=== PATIENT | female | born 1940 | race Caucasian/White ===

== ENCOUNTER 2016-09-04 10:49 | Emergency (ER) | payer MEDICARE, BC ==
[~2016-09-04] VITALS: Ht 167.6 cm; Wt 113.6 kg
[~2016-09-04 10:49] MED LIST: ADULT ASA81 MG OR; ALPRAZOLAM0.25 MG PO; ALPRAZOLAM0.5 M1 PO; ALPRAZOLAM0.5 MG PO; ARIXTR SC; ASPIR-8181 MG OR; ASPIRIN81 MG PO; AUGMENTIN500TAB PO; AVELOX400 MG OR; CETIRIZ/PSE1 TAB PO; CETIRIZINE10 MG OR; CIPRODEX1 ML OT; CLONAZEP ODT1 MG OR; CLONAZEPAM1 M1 OR; COMBIVENT IN; COUMADIN5 MG OR; COUMADIN5 MG PO; COUMADIN7.5 MG OR; COUMADIN7.5 MG PO; CYMBALTA30 MG PO; CYTOMEL25 MC1 PO; DIFLUCAN100 MG PO; FENOFIBRATE134 MG; FENOFIBRATE134 MG OR; FENOFIBRATE134 MG PO; FIBERCON625 MG PO; FLEXERIL PO; FLONASE NASAL50 MCG; FLUARIX QUADRIV1 INJ IM; FLULAVAL IM; FUROSEMIDE40 MG OR; FUROSEMIDE40 MG PO; HYDROCO/APAP1 T10 OR; HYDROCO/APAP1 T10 PO; HYDROMET1 M1 OR; IPRATROPIUM BROMIDE/ PO; KLOR-CON 1010 ME1 PO; KLOR-CON 1010 MEQ OR; LASIX40 MG OR; LEVAQUIN750 MG PO; LEVOTHYROXIN137 MCG OR; LEVOTHYROXIN150 MCG PO; LEVOTHYROXIN25 MC1 PO; LEVOTHYROXIN25 MCG PO; LOMOTIL2.5 MG PO; LOPRESSOR25 MG PO; LORTAB 7.5 PO; METFORMIN1000 MG PO; METFORMIN500 M1 PO; METFORMIN500 MG OR; METOPROL TAR25 M1 PO; METOPROLOL25 M1 OR; METOPROLOL25 MG OR; NASONEX50 MCG/AC; NITROGLYCER0.4 MG/HR TD; NITROQUICK0.4 MG SL; NORCO1 TAB PO; ONE DAILY FOR WOME1 PO; OXYCOD-APAP1 TAB OR; PANTOPRAZOLE SO40 MG PO; PAROXETINE10 MG PO; PAROXETINE20 MG OR; PAROXETINE20 MG PO; PEPCID AC10 MG OR; PERCOCET 5/325M1 TAB PO; PLAVIX75 MG OR; PRAVASTATIN20 MG PO; PREDNISONE10 MG OR; PREDNISONE20 MG PO; PREVACID30 M2 PO; PROMETH/COD1 ML OR; PROVENTIL HFA INH; ROBITUSSIN AC10 ML OR; ROBITUSSIN AC10 ML PO; SERTRALINE HCL50 MG PO; SERTRALINE100 MG PO; SIMVASTATIN40 MG OR; SKELAXIN800 MG OR; SYMBICORT1 AE1 IN; SYNTHROID125 MCG PO; SYNTHROID150 MCG OR; SYNTHROID200 MCG PO; ULTRAM50 M1 PO; VOSOL2 % AU; WARFARIN5 MG OR; WARFARIN5 MG PO; WARFARIN7.5 MG OR; XANAX0.5 MG OR; ZANTAC 150 PO; ZOFRAN ODT4 MG PO; ZPAK PO
[2016-09-04 11:18] LABS: HEMOGLOBIN 11.9 g/dl (12.0-16.0); IMMATURE GRANULOCYTES 0.4 % (0.0-1.0); MEAN CELL VOLUME 93.1 fL CALC (80.0-100.0); MEAN CORPUSCULAR HGB 29.2 pG CALC (26.0-32.0); MEAN CORPUSCULAR HGB CONC 31.3 g/L CALC (32.0-36.0); NEUT# 6.55 thou/uL (2.00-7.15); RED BLOOD COUNT 4.08 mill/uL (4.20-5.60); RED CELL DISTRI WIDTH 13.2 % (11.5-15.5)
[2016-09-04 11:29] LABS: ALBUMIN 3.9 g/dL (3.2-5.0); ALKALINE PHOSPHATASE 101 u/l (38-126); ANION GAP 16 (6-22 (CALC)); BILIRUBIN, TOTAL 0.4 mg/dL (0.0-1.4); BUN 10 mg/dL (8-23); BUN/CREATININE RATIO 12 (12-20 (CALC)); CALCIUM 8.9 mg/dL (8.4-10.2); CARBON DIOXIDE 27 mmol/l (22-30); CHLORIDE 102 mmol/l (95-108); CREATININE 0.9 mg/dL (0.5-1.0); GFR > 60 ML/MIN (>=60 (CALC)); GFR FOR AFR.AMER. > 60 ML/MIN (>=60 (CALC)); GLUCOSE 113 mg/dL (82-115); INTERNATIONAL NORMALIZED RATIO 1.8 RATIO (0.7-1.3); POTASSIUM 4.5 mmol/l (3.5-5.1); PROTHROMBIN TIME 20.9 SECONDS (9.0-12.5); SGOT/AST 44 u/l (9-36); SGPT/ALT 46 u/l (11-66); SODIUM 141 mmol/l (137-146); TOTAL PROTEIN 6.9 g/dL (6.3-8.2)
[2016-09-04 11:40] LABS: MYOGLOBIN 25 ng/mL (0 - 62)
[2016-09-04 12:27] LABS: URINE BILIRUBIN - DIPSTICK NEGATIVE (NEGATIVE); URINE BLOOD DIPSTICK NEGATIVE (NEGATIVE); URINE CLARITY CLEAR; URINE COLOR YELLOW; URINE GLUCOSE - DIPSTICK NEGATIVE (NEGATIVE); URINE KETONE NEGATIVE (NEGATIVE); URINE LEUK ESTERASE TRACE (NEGATIVE); URINE NITRITE - DIPSTICK NEGATIVE (Negative); URINE PROTEIN - DIPSTICK NEGATIVE (NEG-TRACE); URINE SPECIFIC GRAVITY 1.015; URINE UROBILINOGEN - DIPSTICK 0.2 E.U./dL (0.2)
[2016-09-04 13:35] VITALS: BP 135/65
== END 2016-09-04 13:35 | disposition home or self-care (01) ==
LOC: ED 10:49
PROVIDERS: Emergency Medicine
DX: R42 Dizziness and giddiness (principal); I10 Essential (primary) hypertension; I25.10 Atherosclerotic heart disease of native coronary artery without angina pectoris; E11.9 Type 2 diabetes mellitus without complications; R11.0 Nausea; Z79.01 Long term (current) use of anticoagulants

== ENCOUNTER 2017-04-12 22:56 | Emergency (ER) | payer MEDICARE, BC ==
[~2017-04-12] VITALS: Ht 167.6 cm; Wt 100.0 kg
[2017-04-12] MEDS ORDERED: COUMADIN7.5 MG PO (23:12)
[2017-04-12] MEDS ORDERED: LEVOTHYROXIN100 MCG PO (23:13)
[2017-04-13] MEDS ORDERED: PERCOCET 5/325M1 TAB PO (00:40)
[2017-04-13 00:50] VITALS: BP 158/77
== END 2017-04-13 00:50 | disposition home or self-care (01) ==
LOC: ED 22:56
DX: S93.601A Unspecified sprain of right foot, initial encounter (principal); M79.671 Pain in right foot; M25.474 Effusion, right foot; W18.30XA Fall on same level, unspecified, initial encounter; Y93.89 Activity, other specified; Y92.29 Other specified public building as the place of occurrence of the external cause

== ENCOUNTER 2017-10-18 12:29 | Inpatient (IN) | payer MEDICARE, BC ==
[~2017-10-18] VITALS: Ht 167.6 cm; Wt 95.0 kg
[~2017-10-18 12:29] MED LIST changes: +LEVOTHYROXIN100 MCG PO
[2017-10-18 14:07] LABS: HEMATOCRIT 37.8 % (37.0-47.0); HEMOGLOBIN 12.2 g/dl (12.0-16.0); IMMATURE GRANULOCYTES 0.3 % (0.0-1.0); MEAN CELL VOLUME 90.4 fL CALC (80.0-100.0); MEAN CORPUSCULAR HGB 29.2 pG CALC (26.0-32.0); MEAN CORPUSCULAR HGB CONC 32.3 g/L CALC (32.0-36.0); NEUT# 8.22 thou/uL (2.00-7.15); RED BLOOD COUNT 4.18 mill/uL (4.20-5.60); RED CELL DISTRI WIDTH 12.6 % (11.5-15.5)
[2017-10-18 14:19] LABS: ALBUMIN 3.9 g/dL (3.2-5.0); ANION GAP 14 (6-22 (CALC)); BILIRUBIN, TOTAL 0.4 mg/dL (0.0-1.4); BUN 10 mg/dL (8-23); BUN/CREATININE RATIO 10 (12-20 (CALC)); CARBON DIOXIDE 28 mmol/l (22-30); CHLORIDE 99 mmol/l (95-108); GFR 54 ML/MIN (>=60 (CALC)); GFR FOR AFR.AMER. > 60 ML/MIN (>=60 (CALC)); POTASSIUM 3.9 mmol/l (3.5-5.1); SGOT/AST 26 u/l (9-36); SGPT/ALT 35 u/l (11-66); SODIUM 137 mmol/l (137-146); TOTAL PROTEIN 6.9 g/dL (6.3-8.2)
[2017-10-18 14:20] LABS: ALKALINE PHOSPHATASE 111 u/l (38-126)
[2017-10-18 14:26] LABS: D-DIMER 0.48 mg/L (0.19-0.60)
[2017-10-18] MEDS ORDERED: IPRATROPIU0.5 MG/3 M IN (14:27)
[2017-10-18] MEDS ORDERED: LISINOPRIL5 MG PO (14:27)
[2017-10-18 14:39] LABS: INTERNATIONAL NORMALIZED RATIO 2.5 RATIO (0.7-1.3); PROTHROMBIN TIME 28.2 SECONDS (9.0-12.5)
[2017-10-18 16:02] VITALS: BP 132/85
[2017-10-18 19:00] VITALS: BP 94/58
[2017-10-18 23:45] VITALS: BP 92/60
[2017-10-19 03:51] VITALS: BP 89/55
[2017-10-19 04:50] LABS: HEMATOCRIT 33.5 % (37.0-47.0); HEMOGLOBIN 10.6 g/dl (12.0-16.0); IMMATURE GRANULOCYTES 0.3 % (0.0-1.0); MEAN CELL VOLUME 89.6 fL CALC (80.0-100.0); MEAN CORPUSCULAR HGB 28.3 pG CALC (26.0-32.0); MEAN CORPUSCULAR HGB CONC 31.6 g/L CALC (32.0-36.0); NEUT# 7.11 thou/uL (2.00-7.15); RED BLOOD COUNT 3.74 mill/uL (4.20-5.60); RED CELL DISTRI WIDTH 12.6 % (11.5-15.5)
[2017-10-19 05:01] LABS: CHOLESTEROL HDL RATIO 2.8 (<4.4 (CALC)); INTERNATIONAL NORMALIZED RATIO 2.5 RATIO (0.7-1.3); PROTHROMBIN TIME 28.1 SECONDS (9.0-12.5)
[2017-10-19 05:03] LABS: ALBUMIN 3.3 g/dL (3.2-5.0); BILIRUBIN, TOTAL 0.2 mg/dL (0.0-1.4); CREATININE 1.1 mg/dL (0.5-1.0); TOTAL PROTEIN 6.1 g/dL (6.3-8.2)
[2017-10-19 05:34] LABS: TSH, 3RD GENERATION 0.57 uIU/mL (0.47 - 4.68)
[2017-10-19 07:37] VITALS: BP 129/78
[2017-10-19 11:00] VITALS: BP 137/73
[2017-10-19 15:56] VITALS: BP 107/57
[2017-10-19 19:35] VITALS: BP 112/63
[2017-10-19 23:31] VITALS: BP 103/59
[2017-10-20] VITALS (7 sets, daily range): BP systolic 91–129; BP diastolic 50–76
[2017-10-20 04:52] LABS: HEMATOCRIT 32.9 % (37.0-47.0); HEMOGLOBIN 10.7 g/dl (12.0-16.0); IMMATURE GRANULOCYTES 0.7 % (0.0-1.0); MEAN CELL VOLUME 88.4 fL CALC (80.0-100.0); MEAN CORPUSCULAR HGB 28.8 pG CALC (26.0-32.0); MEAN CORPUSCULAR HGB CONC 32.5 g/L CALC (32.0-36.0); NEUT# 14.37 thou/uL (2.00-7.15); RED BLOOD COUNT 3.72 mill/uL (4.20-5.60); RED CELL DISTRI WIDTH 12.4 % (11.5-15.5)
[2017-10-20 05:13] LABS: CREATININE 1.1 mg/dL (0.5-1.0); POTASSIUM 3.8 mmol/l (3.5-5.1)
[2017-10-21 04:38] VITALS: BP 112/65
[2017-10-21 04:39] LABS: HEMATOCRIT 36.3 % (37.0-47.0); HEMOGLOBIN 11.7 g/dl (12.0-16.0); IMMATURE GRANULOCYTES 0.7 % (0.0-1.0); MEAN CORPUSCULAR HGB 28.7 pG CALC (26.0-32.0); MEAN CORPUSCULAR HGB CONC 32.2 g/L CALC (32.0-36.0); NEUT# 9.32 thou/uL (2.00-7.15); RED BLOOD COUNT 4.08 mill/uL (4.20-5.60); RED CELL DISTRI WIDTH 12.7 % (11.5-15.5)
[2017-10-21 04:45] LABS: ALBUMIN 3.3 g/dL (3.2-5.0); ALKALINE PHOSPHATASE 81 u/l (38-126); ANION GAP 13 (6-22 (CALC)); BILIRUBIN, TOTAL 0.2 mg/dL (0.0-1.4); BUN 17 mg/dL (8-23); BUN/CREATININE RATIO 18 (12-20 (CALC)); CARBON DIOXIDE 28 mmol/l (22-30); CHLORIDE 101 mmol/l (95-108); CREATININE 0.9 mg/dL (0.5-1.0); GFR > 60 ML/MIN (>=60 (CALC)); GFR FOR AFR.AMER. > 60 ML/MIN (>=60 (CALC)); POTASSIUM 4.3 mmol/l (3.5-5.1); SGOT/AST 28 u/l (9-36); SGPT/ALT 33 u/l (11-66); SODIUM 137 mmol/l (137-146); TOTAL PROTEIN 6.1 g/dL (6.3-8.2)
[2017-10-21 07:33] VITALS: BP 115/72
[2017-10-21 11:45] VITALS: BP 123/62
[2017-10-21 15:24] VITALS: BP 113/64
[2017-10-21 19:00] VITALS: BP 117/70
[2017-10-22 00:05] VITALS: BP 116/59
[2017-10-22 03:49] VITALS: BP 110/58
[2017-10-22 05:07] LABS: HEMATOCRIT 35.2 % (37.0-47.0); HEMOGLOBIN 11.4 g/dl (12.0-16.0); IMMATURE GRANULOCYTES 1.4 % (0.0-1.0); MEAN CELL VOLUME 89.8 fL CALC (80.0-100.0); MEAN CORPUSCULAR HGB 29.1 pG CALC (26.0-32.0); MEAN CORPUSCULAR HGB CONC 32.4 g/L CALC (32.0-36.0); NEUT# 6.67 thou/uL (2.00-7.15); RED BLOOD COUNT 3.92 mill/uL (4.20-5.60)
[2017-10-22 05:22] LABS: ANION GAP 11 (6-22 (CALC)); BUN 13 mg/dL (8-23); BUN/CREATININE RATIO 13 (12-20 (CALC)); CARBON DIOXIDE 30 mmol/l (22-30); CHLORIDE 102 mmol/l (95-108); GFR 54 ML/MIN (>=60 (CALC)); GFR FOR AFR.AMER. > 60 ML/MIN (>=60 (CALC)); POTASSIUM 4.5 mmol/l (3.5-5.1); SODIUM 139 mmol/l (137-146)
[2017-10-22 07:19] VITALS: BP 111/69
[2017-10-22 08:00] VITALS: BP 111/69
[2017-10-22] MEDS ORDERED: LEVAQUIN750 MG PO (08:26)
[2017-10-22] MEDS ORDERED: RESTORIL15 MG PO (09:04)
== END 2017-10-22 09:43 | disposition home or self-care (01) | DRG 190 ==
LOC: ED 12:29 → ED-I 15:14 → ED 15:26 → MS2 15:27
PROVIDERS: Emergency Medicine; ADMIT Internal Medicine Geriatric Medicine; ATTEND Internal Medicine Geriatric Medicine
DX: J44.1 Chronic obstructive pulmonary disease with (acute) exacerbation (principal); J18.9 Pneumonia, unspecified organism; F11.20 Opioid dependence, uncomplicated; J44.0 Chronic obstructive pulmonary disease with (acute) lower respiratory infection; E11.9 Type 2 diabetes mellitus without complications; I10 Essential (primary) hypertension; I25.10 Atherosclerotic heart disease of native coronary artery without angina pectoris; E03.9 Hypothyroidism, unspecified; E78.5 Hyperlipidemia, unspecified; F32.9 Major depressive disorder, single episode, unspecified; G89.29 Other chronic pain; M54.5 Low back pain; K21.9 Gastro-esophageal reflux disease without esophagitis; M47.812 Spondylosis without myelopathy or radiculopathy, cervical region; R11.2 Nausea with vomiting, unspecified; R19.7 Diarrhea, unspecified; I49.3 Ventricular premature depolarization; I25.2 Old myocardial infarction; Z95.2 Presence of prosthetic heart valve; Z79.01 Long term (current) use of anticoagulants
CPT/HCPCS: G0378

== ENCOUNTER 2018-02-02 12:54 | Observation (INO) | payer MEDICARE, BC ==
[~2018-02-02] VITALS: Ht 170.2 cm; Wt 94.0 kg
[~2018-02-02 12:54] MED LIST changes: +IPRATROPIU0.5 MG/3 M IN; +LISINOPRIL5 MG PO; +RESTORIL15 MG PO
--- NOTE | 2018-02-02 13:01 | NUR ---
PT TO ROOM 14 VIA EMS
[2018-02-02] MEDS ORDERED: PEPCID20 MG PO (13:11)
--- NOTE | 2018-02-02 13:16 | NUR ---
AT BEDSIDE EVALUATING PT.
[2018-02-02 13:28] LABS: HEMATOCRIT 39.7 % (37.0-47.0); HEMOGLOBIN 12.3 g/dl (12.0-16.0); IMMATURE GRANULOCYTES 0.5 % (0.0-5.0); MEAN CELL VOLUME 88.6 fL CALC (80.0-100.0); MEAN CORPUSCULAR HGB 27.5 pG CALC (26.0-32.0); NEUT# 5.53 thou/uL (2.00-7.15); RED BLOOD COUNT 4.48 mill/uL (4.20-5.60); RED CELL DISTRI WIDTH 14.3 % (11.5-15.5)
--- NOTE | 2018-02-02 13:32 | NUR ---
PT CRYING IN BED SUDDENLY AND MD AT BEDSIDE. STATES HER KNEE HURTS.
[2018-02-02 13:38] LABS: PROTHROMBIN TIME 20.7 SECONDS (9.0-12.5)
[2018-02-02 13:42] LABS: ANION GAP 12 (6-22 (CALC)); BUN 10 mg/dL (8-23); BUN/CREATININE RATIO 11 (12-20 (CALC)); CARBON DIOXIDE 29 mmol/l (22-30); CHLORIDE 105 mmol/l (95-108); CREATININE 0.9 mg/dL (0.5-1.0); GFR > 60 ML/MIN (>=60 (CALC)); GFR FOR AFR.AMER. > 60 ML/MIN (>=60 (CALC)); POTASSIUM 4.7 mmol/l (3.5-5.1); SODIUM 141 mmol/l (137-146)
--- NOTE | 2018-02-02 14:44 | NUR ---
VOLNAR SPLINT APPLIED TO LEFT HAND/FOREARM. PT TOLERATED WELL.
--- NOTE | 2018-02-02 15:04 | NUR ---
PT AWARE OF PENDING ADMIT. DAUGHTER AT BEDSIDE. CAP REFILL BRISK TO LT HAND.
[2018-02-02 15:30] VITALS: BP 124/76
--- NOTE | 2018-02-02 15:38 | NUR ---
REPORT CALLED TO NURSE ON MEDSURG. ADVISED BY NURSE THAT ROOM WAS BEING CLEANED AND SHE WILL CALL WHEN IT IS READY.
--- NOTE | 2018-02-02 16:07 | NUR ---
ATTEMPT TO TAKE PT TO MEDSURG ROOM 280. PER REMOTE RUBY ON RAILS DEVELOPER ROOM IS STILL NOT AVAILABLE.
--- NOTE | 2018-02-02 16:12 | NUR ---
PT TO MEDSURG VIA STRETCHER. CAP REFILL BRISK TO LUE/FINGERS. VOLNAR SPLINT IN PLACE. IV SITE HEALTHY RAC. NO APPARENT DISTRESS.
--- NOTE | 2018-02-02 16:17 | NUR ---
PT TRANSPORTED TO [place] VIA STRETCHER ACCOMPIANED BY EBONI CASTILLO. PT TRANSFERRED TO BED FROM STRETCHER WITH ASSISTANCE FROM NICOLE CAO. PT A/O X3. SPEECH IS CLEAR. RESP EVEN AND UNLABORED. LUNG SOUNDS CLEAR. TELE IN PLACE. LAST BM 02/01/18. BOWEL SOUNDS ACTIVE X4. STRONG RADIAL AND PEDAL PULSES. EMS #20 RAC SL. FLUSHED AND PATENT. SITE APPEARS HEALTHY. PT HAS LT FOREHEAD HEMATOMA. RT PALM BRUSING. LT HAND DRESSING IN PLACE CDI. PT STATES RT FLANK SORENESS. ABRASION TO RT KNEE. PT STATES STABBING RT KNEE PAIN RATING 7 OUT OF 10 ON THE PAIN SCALE.DRESSING REMOVED,CLEANED AND TELFA AND KERLIX APPLIED. MINIMAL SWELLING AND REDNESS NOTED. LT KNEE REPOSITIONED. PLAN OF CARE DISCUSSED. SAFETY PRECAUTIONS IN PLACE. CALL LIGHT IN REACH. WILL CONTINUE TO MONITOR.
--- NOTE | 2018-02-02 17:22 | NUR ---
DR YING IN TO SEE PT
[2018-02-02 17:25] VITALS: BP 97/70
--- NOTE | 2018-02-02 18:39 | NUR ---
DR. YING CALLED IN REGARDS TO PAIN MEDICATION FOR PT. NEW ORDERS RECIEVED
[2018-02-02 20:00] VITALS: BP 105/62
[2018-02-02 23:49] VITALS: BP 95/59
[2018-02-03 04:00] VITALS: BP 125/45
--- NOTE | 2018-02-03 08:50 | NUR ---
AT BEDSIDE DISCUSSING POC INCLUDING DISCHARGE PLAN
[2018-02-03 08:59] VITALS: BP 115/58
[2018-02-03] MEDS ORDERED: RESTORIL15 MG PO (08:59)
--- NOTE | 2018-02-03 08:59 | NUR ---
PT ASSESSMENT COMPLETE. PT A/O X3. SPEECH IS CLEAR. RESP EVEN AND UNLABORED. LUNG SOUNDS CLEAR. TELE IN PLACE. BOWEL SOUNDS ACTIVE X4. STRONG RT HAND RADIAL PULSE. STRONG PEDAL PULSES. RT FOREHEAD HEAMTOMA NOTED. VERY LIGHT BLUE. NO OPENINGS OR DRAINAGE ON FOREHEAD. #20 RAC EMS SITE. FLUSHED AND PATENT. SITE APPEARS HEALTHY. PT STATES GENERALIZED SORENESS. LT HAND DRESSING IN PLACE. CDI, ELEVATED ON PILLOW. LT KNEE DRESSING CDI. PT STATES ACHING LT KNEE/HAND PAIN 7 OUT OF 10 ON PAIN SCALE. MEDICATED W/ ONE 325MG PERCOCET TABLET. PLAN OF CARE DISCUSSED. SAFETY PRECAUTIONS IN PLACE. CALL LIGHT IN REACH. WILL CONTINUE TO MONITOR.
[2018-02-03 09:13] LABS: HEMATOCRIT 37.1 % (37.0-47.0); HEMOGLOBIN 11.5 g/dl (12.0-16.0); IMMATURE GRANULOCYTES 0.2 % (0.0-5.0); MEAN CELL VOLUME 88.8 fL CALC (80.0-100.0); MEAN CORPUSCULAR HGB 27.5 pG CALC (26.0-32.0); NEUT# 3.86 thou/uL (2.00-7.15); RED BLOOD COUNT 4.18 mill/uL (4.20-5.60); RED CELL DISTRI WIDTH 14.5 % (11.5-15.5)
[2018-02-03 09:28] LABS: CHOLESTEROL HDL RATIO 2.8 (<4.4 (CALC)); CREATININE 1.1 mg/dL (0.5-1.0); POTASSIUM 4.5 mmol/l (3.5-5.1)
--- NOTE | 2018-02-03 09:41 | NUR ---
PT STATES LT HAND/KNEE PAIN HAS DECREASED TO A 5 OUT OF 10 ON PAIN SCALE. ASSISTED PT TO RESTROOM. LT HAND READJUSTED AND ELEVATED ON PILLOW. PT DENIES AND FURTHER NEEDS AT THIS TIME. CALL LIGHT IN REACH. WILL CONTINUE TO MONITOR.
--- NOTE | 2018-02-03 10:32 | NUR ---
DRESSING TO LT KNEE REMOVED. ABRASIONS TO KNEE, REDDENED AND BRUISED. SCANT SEROSANGUINEOUS DRAINAGE. SWELLING NOTED. AREA CLEANED W/ SALINE. TELFA AND KACE BANDAGE APPLIED. WILL CONTINUE TO MONITOR
--- NOTE | 2018-02-03 10:47 | NUR ---
'S OFFICE CALLED TO SCHEDULE AN APPT PER FOR SPLINT PLACEMENT; CURRENTLY IN HOUSE AND WILL COME TO PATIENTS ROOM AFTER HE IS DONE WITH A SX IN OR, PT UPDATED ON POC AND VERBALIZES UNDERSTANDING
--- NOTE | 2018-02-03 11:07 | NUR ---
PER SPLINT TO REMAIN IN PLACE UNTIL NEXT WEEK AND PT TO FOLLOW UP IN [facility] OFFICE.[facility] OFFICE CALLED AND PT PHONE # [email or web address]. OFFICE TO CALL AND SCHEDULE AN WITH PT PERSONALLY FOR FOLLOW UP. PT UPDATED ON POC AND VERBALIZES UNDERSTANDING
--- NOTE | 2018-02-03 11:30 | NUR ---
ALL DISCHARGE INFORMATION PROVIDED AT THIS TIME INCLUDING PRESCRIPTION;PT DENIES ANY ADDITIONAL NEEDS AT THIS TIME;IV SITE REMOVED WITH CATHETER INTACT;WHEELCHAIR TO BE PROVIDED FOR DISCHARGE;AWAITING GRAND DAUGHTER TO ARRIVE TO TRANSPORT PT HOME;WILL CONTINUE TO MONITOR
[2018-02-03 11:39] VITALS: BP 104/58
--- NOTE | 2018-02-03 12:20 | NUR ---
Discharge instructions given. Patient verbalizes understanding of same. Discharged in stable condition via Wheelchair to Home with family. All belongings sent with pt. Pt discharged at this time via wheelchair accompanied by volunteer and grand daughter.
== END 2018-02-03 12:20 | disposition home or self-care (01) ==
LOC: ED 12:54 → ED-I 14:47 → ED 14:59 → MS2 15:00
PROVIDERS: Family Medicine; ADMIT Internal Medicine Geriatric Medicine; ATTEND Internal Medicine Geriatric Medicine
PROC: 2W3DX1Z Immobilization of Left Lower Arm using Splint (ICD-10-PCS; principal; 2018-02-02)
DX: S00.83XA Contusion of other part of head, initial encounter (principal); S51.812A Laceration without foreign body of left forearm, initial encounter; S80.212A Abrasion, left knee, initial encounter; S60.221A Contusion of right hand, initial encounter; S62.317A Displaced fracture of base of fifth metacarpal bone, left hand, initial encounter for closed fracture; S00.33XA Contusion of nose, initial encounter; S20.211A Contusion of right front wall of thorax, initial encounter; I10 Essential (primary) hypertension; E78.5 Hyperlipidemia, unspecified; E11.9 Type 2 diabetes mellitus without complications; I49.9 Cardiac arrhythmia, unspecified; M19.90 Unspecified osteoarthritis, unspecified site; E03.9 Hypothyroidism, unspecified; M54.9 Dorsalgia, unspecified; G89.29 Other chronic pain; F11.20 Opioid dependence, uncomplicated; W01.0XXA Fall on same level from slipping, tripping and stumbling without subsequent striking against object, initial encounter; Y92.007 Garden or yard of unspecified non-institutional (private) residence as the place of occurrence of the external cause; Z79.01 Long term (current) use of anticoagulants; Z95.2 Presence of prosthetic heart valve
CPT/HCPCS: Q9967

== ENCOUNTER 2018-06-11 14:00 | Outpatient (RCR) | payer MEDICARE, BC ==
[~2018-06-11 14:00] MED LIST changes: +PEPCID20 MG PO
== END 2018-06-11 15:00 | disposition home or self-care (01) ==
LOC: PT 14:00
PROVIDERS: ATTEND Pain Medicine Interventional Pain Medicine
DX: S76.0 Injury of muscle, fascia and tendon of hip (principal); S76.091 Other specified injury of muscle, fascia and tendon of right hip

== ENCOUNTER 2019-09-27 06:03 | Day surgery (SDC) | payer MEDICARE ==
[~2019-09-27 06:03] MED LIST changes: +CALCIUM600 M1 PO; +CENTRUM PO; +LOVENOX100 MG/1 M SC; +PEPCID AC20 MG PO; +TIZANIDINE4 MG PO; +VENTOLIN HFA IN
[2019-09-27 08:43] VITALS: BP 128/66
== END 2019-09-27 09:05 | disposition home or self-care (01) ==
LOC: ENDO 06:03
PROVIDERS: ATTEND Surgery
PROC: 0DBK8ZX Excision of Ascending Colon, Via Natural or Artificial Opening Endoscopic, Diagnostic (ICD-10-PCS; principal; 2019-09-27)
PROC: 0DBL8ZX Excision of Transverse Colon, Via Natural or Artificial Opening Endoscopic, Diagnostic (ICD-10-PCS; 2019-09-27)
PROC: 0DBM8ZX Excision of Descending Colon, Via Natural or Artificial Opening Endoscopic, Diagnostic (ICD-10-PCS; 2019-09-27)
PROC: 0DBH8ZX Excision of Cecum, Via Natural or Artificial Opening Endoscopic, Diagnostic (ICD-10-PCS; 2019-09-27)
DX: Z12.11 Encounter for screening for malignant neoplasm of colon (principal); D12.0 Benign neoplasm of cecum; D12.4 Benign neoplasm of descending colon; D12.3 Benign neoplasm of transverse colon; D12.2 Benign neoplasm of ascending colon; K57.30 Diverticulosis of large intestine without perforation or abscess without bleeding; K64.8 Other hemorrhoids; I10 Essential (primary) hypertension; E11.9 Type 2 diabetes mellitus without complications; Z86.010 Personal history of colon polyps; Z79.84 Long term (current) use of oral hypoglycemic drugs; Z11.59 Encounter for screening for other viral diseases

== ENCOUNTER 2020-10-25 13:12 | Observation (INO) | payer MEDICARE ==
[~2020-10-25] VITALS: Ht 170.2 cm; Wt 93.3 kg
[2020-10-25] VITALS (8 sets, daily range): BP systolic 101–175; BP diastolic 50–80
--- NOTE | 2020-10-25 13:20 | NUR ---
PATIENT C/O NUMBNESS/TINGLING TO FACES STARTING YESTERDAY, STATES SHE NOTICED WEAKNESS TO LEFT LEG AND ARM THIS AM WHILE WALKING HER DOG.
--- NOTE | 2020-10-25 13:20 | NUR ---
DR. SALDIVAR TO BEDSIDE TO EVALUATE. PATIENT STATES SHE IS HAVING FACIAL TINGLING.LEFT ARM AND LEFT LEG WEAKNESS. 1322: STROKE ALERT CALLED. PATIENT TO PT. 1323; PATIENT TRANSFERRED TO CT VIA STRETCHER.
[2020-10-25 13:57] LABS: HEMATOCRIT 42.2 % (37.0-47.0); HEMOGLOBIN 13.3 g/dl (12.0-16.0); IMMATURE GRANULOCYTES 0.3 % (0.0-5.0); MEAN CELL VOLUME 88.7 fL CALC (80.0-100.0); MEAN CORPUSCULAR HGB 27.9 pG CALC (26.0-32.0); MEAN CORPUSCULAR HGB CONC 31.5 g/dL CAL (32.0-36.0); RED BLOOD COUNT 4.76 mill/uL (4.20-5.60); RED CELL DISTRI WIDTH 13.6 % (11.5-15.5)
[2020-10-25 14:05] LABS: ALBUMIN 4.2 g/dL (3.2-5.0); ALKALINE PHOSPHATASE 85 u/l (38-126); ANION GAP 14 (6-22 (CALC)); BILIRUBIN, TOTAL 0.3 mg/dL (0.0-1.4); BUN 13 mg/dL (8-23); BUN/CREATININE RATIO 12 (12-20 (CALC)); CARBON DIOXIDE 25 mmol/l (22-30); CHLORIDE 103 mmol/l (95-108); CREATININE 1.1 mg/dL (0.5-1.0); GFR 48 ML/MIN (>=60 (CALC)); GFR FOR AFR.AMER. 58 ML/MIN (>=60 (CALC)); POTASSIUM 4.6 mmol/l (3.5-5.1); SGOT/AST 28 u/l (9-36); SODIUM 137 mmol/l (137-146); TOTAL PROTEIN 7.3 g/dL (6.3-8.2)
[2020-10-25 14:26] LABS: PROTHROMBIN TIME 14.9 SECONDS (9.0-12.5)
[2020-10-25 14:27] LABS: INTERNATIONAL NORMALIZED RATIO 1.5 RATIO (0.7-1.3)
--- NOTE | 2020-10-25 14:58 | NUR ---
PATIENT WITH NEW IV START TO LEFT A/C , 20G HEALTHY SITE PER G. SEVERIANO LYN
[2020-10-25 15:59] LABS: URINE BILIRUBIN - DIPSTICK NEGATIVE (NEGATIVE); URINE BLOOD DIPSTICK NEGATIVE (NEGATIVE); URINE COLOR YELLOW; URINE GLUCOSE - DIPSTICK NEGATIVE (NEGATIVE); URINE KETONE NEGATIVE (NEGATIVE); URINE LEUK ESTERASE NEGATIVE (NEGATIVE); URINE PROTEIN - DIPSTICK NEGATIVE (NEG-TRACE); URINE SPECIFIC GRAVITY <=1.005; URINE UROBILINOGEN - DIPSTICK 0.2 E.U./dL (0.2)
[2020-10-25 16:00] LABS: URINE NITRITE - DIPSTICK NEGATIVE (Negative)
--- NOTE | 2020-10-25 16:24 | NUR ---
REPORT CALLED TO COSMO IN ICU
--- NOTE | 2020-10-25 17:01 | NUR ---
VANESSA HACKETT BEDSIDE WITH PATIENT
--- NOTE | 2020-10-25 17:20 | NUR ---
PT ARRIVED VIA STRETCHER FROM ER, PLACED ON BEDSIDE MONTIOR, ORIENTED TO USE OF CALL CASTAÑEDA, AND TV REMOTE, INSTRUCTED TO CALL FOR ASSISTANCE TO GET OUT OF BED, DENIES PAIN, NIH STROKE SCALE NOTED AT A 2, DINNER TRAY PROVIDED. PT NOTED TO HAVE PURSE, DENTURES, GLASSES, CELL PHONE AND TABLET. DENIED PLACING ITEMS IN SAFE. WILL CONTINUE TO MONTIOR PER HOSPITAL POLICY
--- NOTE | 2020-10-25 19:09 | NUR ---
PATIENT SITS IN CADET'S POSITION, TALKS ON HER CELLPHONE AND HAS TABLET THAT SHE IS ON. NO ACUTE DISTRESS SHOWN.
--- NOTE | 2020-10-25 19:24 | NUR ---
PATIENT ABLE TO WALK TO RESTROOM, NO DIFFICULTY NOTED, ONLY COMPLAINT WAS "BAD KNEE." SITS ON TOILET AND TALK ON HER CELLPHONE. REPORTS SHE WILL PULL ON STRING CALL LIGHT WHEN SHE IS READY.
--- NOTE | 2020-10-25 19:35 | NUR ---
PATIENT ABLE TO WALK BACK TO BED WITHOUT DIFFICULTY. IS ALERT AND ORIENTED X4, CONVERSATES. NIH PERFORMED, LEFT LEG CONTINUES TO DRIFT ALONG WITH DECREASED SENSATION. PT REPORTS NUMBNESS/TINGLING ON LIPS AND BILAT JAWLINE, NO DROOP NOTED, NO SLURRED SPEECH NOTED, FOLLOWS ALL DIRECTIONS, ANSWERS QUESTIONS APPROPRIATELY. REPORTS PAIN OF BILAT KNEES MORE ON THE LEFT FROM HX OF FALLS, REPORTS 3 TYPES OF SURGERIES/PROCEDURES TO LEFT ACHILLES/FOOT. LAC IV INTACT, NS INFUSING PROPERLY. SR ON TELEMETRY, BP 130'S SYSTOLIC. ON RA, O2 SATS 96%, NO SOB NOTED, AFEBRILE. BILAT LEGS 1+ EDEMA, LEFT LEG MORE SWOLLEN THAN RIGHT. POC DISCUSSED, PT UNDERSTANDS AND AGREES. SELF REPOSITIONS, ICED WATER, ICE CHIPS PROVIDED PER REQUEST. WATCHES TV, HAS TABLET AT BEDSIDE AND CELLPHONE WITHIN REACH. CALL LIGHT WITHIN REACH. DENIES CHEST PAIN.
--- NOTE | 2020-10-25 21:21 | NUR ---
PATIENT ABLE TO TOLERATE LOVENOX INJECTION. BS WNL, BEDTIME SNACK OFFERED AND ACCEPTS, NOW DRINKING HER APPLE JUICE AND ESTING HER FRUIT BAR. DENTURE CUP PROVIDED. NO OTHER NEEDS AT THIS TIME. CALL LIGHT WITHIN REACH.
--- NOTE | 2020-10-25 23:52 | NUR ---
PAIN MEDICATION PROVIDED, C/O NECK PAIN AND R-ARM PAIN FROM BLOOD PRESSURE CUFF. MEND EXAM PERFORMED, CONTINUES TO DRIFT LEFT LEG, DECREASED SENSATION ON LEFT LEG AND NUMBNESS TO LIPS AND BILAT JAWLINE. AFEBRILE. CALL LIGHT WITHIN REACH.
[2020-10-26] VITALS (14 sets, daily range): BP systolic 117–162; BP diastolic 54–70
--- NOTE | 2020-10-26 00:29 | NUR ---
KAYLYN RICHARDS IN [place] TO DRAW BLOOD FOR TROPONIN DUE
--- NOTE | 2020-10-26 04:59 | NUR ---
PATIENT AWAKENS WITH PAINFUL STIMULI, HAS NO COMPLAINTS. AFEBRILE. SR ON TELEMETRY, HR 70'S. CALL LIGHT WITHIN REACH.
--- NOTE | 2020-10-26 05:50 | NUR ---
PATIENT ABLE TO STAND UP TO BSC. ABLE TO SWALLOW SYNTHROID DUE THIS AM. REPORTS NUMBNESS IS ON BILAT CHEECKS NOW. LAYS BACK IN BED, CALL LIGHT WITHIN REACH.
[2020-10-26 06:05] LABS: HEMATOCRIT 38.8 % (37.0-47.0); HEMOGLOBIN 12.2 g/dl (12.0-16.0); MEAN CELL VOLUME 89.8 fL CALC (80.0-100.0); MEAN CORPUSCULAR HGB 28.2 pG CALC (26.0-32.0); MEAN CORPUSCULAR HGB CONC 31.4 g/dL CAL (32.0-36.0); RED BLOOD COUNT 4.32 mill/uL (4.20-5.60); RED CELL DISTRI WIDTH 14.1 % (11.5-15.5)
[2020-10-26 06:17] LABS: ANION GAP 10 (6-22 (CALC)); BUN 12 mg/dL (8-23); BUN/CREATININE RATIO 12 (12-20 (CALC)); CALCULATED LDLCHOLESTEROL 59 mg/dL (62-129 (CALC)); CARBON DIOXIDE 25 mmol/l (22-30); CHLORIDE 106 mmol/l (95-108); CHOLESTEROL HDL RATIO 3.5 (<4.4 (CALC)); GFR 54 ML/MIN (>=60 (CALC)); GFR FOR AFR.AMER. > 60 ML/MIN (>=60 (CALC)); HDL CHOLESTEROL 41 mg/dL (>=40); MAGNESIUM 1.7 mg/dL (1.6-2.3); POTASSIUM 4.2 mmol/l (3.5-5.1); SODIUM 137 mmol/l (137-146); TOTAL CHOLESTEROL 145 mg/dl (0-199); TOTAL TRIGLYCERIDES 220 mg/dl (30-149); VLDL CHOLESTROL 44 mg/dl (0-48 (CALC))
--- NOTE | 2020-10-26 06:45 | NUR ---
REPORT RECEIVED FROM YENIFER LYN. CARE ASSUMED
--- NOTE | 2020-10-26 07:15 | NUR ---
PT RESTING IN BED AWAKE. PT IS ALERT AND ORIENTED X3. SHIFT ASSESSMENT COMPLETED AT THIS TIME. NIH COMPLETED. IV PATENT X1. CALL LIGHT IN REACH. WILL CONTINUE TO MONITOR.
--- NOTE | 2020-10-26 07:30 | NUR ---
PT SET UP ON SIDE OF BED FOR AM MEAL.
--- NOTE | 2020-10-26 08:09 | NUR ---
SPEECH THERAPY AT BEDSIDE
--- NOTE | 2020-10-26 08:30 | NUR ---
DR HINES AT BEDSIDE AT THIS TIME.
--- NOTE | 2020-10-26 09:05 | NUR ---
PT TO MRI VIA WHEELCHAIR.
--- NOTE | 2020-10-26 10:01 | NUR ---
PT RETURNED FROM MRI AT THIS TIME GRANDDAUGHTER IS TO BRING DEVICE TO TURN OFF NEUROSTIMULATOR
--- NOTE | 2020-10-26 11:19 | NUR ---
GRANDDAUGHTER DROPPED OFF DEVICE TO TURN OFF NERVE STIMULATOR. PATIENT IS SLEEPING.
--- NOTE | 2020-10-26 11:20 | NUR ---
OCCUPATIONAL THERAPY AT BEDSIDE AT THIS TIME
--- NOTE | 2020-10-26 11:30 | NUR ---
PT RETURNS TO MRI AT THIS TIME VIA WHEELCHAIR
--- NOTE | 2020-10-26 12:30 | NUR ---
PT RETURNS TO ICU BED 5 VIA WHEELCHAIR. SET UP ON SIDE OF BED FOR LUNCH MEAL
--- NOTE | 2020-10-26 13:00 | NUR ---
VISITOR AT BEDSIDE AT THIS TIME.
--- NOTE | 2020-10-26 14:38 | NUR ---
PHYSICAL THERAPY AT BEDSIDE AT THIS TIME
--- NOTE | 2020-10-26 16:19 | NUR ---
PT RESTING IN BED WATCHIG TV. RESP ARE EVEN AND UNLABORED. NO DISTRESS NOTED. CALLL LIGHT IN REACH. WILL CONTINUE TO MONITOR.
--- NOTE | 2020-10-26 18:12 | NUR ---
PT SITTING UP ON SIDE OF BED EATING DINNER. RESP ARE EVEN AND UNLABORED. NO DISTRESS NOTED. CALL LIGHT IN REACH. WILL CONTINUE TO MONITOR
--- NOTE | 2020-10-26 19:36 | NUR ---
PT RESTS WITH EYES CLOSED. NO ACUTE DISTRESS SHOWN. CALL LIGHT WITHIN REACH.
--- NOTE | 2020-10-26 20:00 | NUR ---
PATIENT AWAKENS WITH PAINFUL STIMULI, ORIENTED X4. CONVERSATES. MEND EXAM PERFORMED- REPORTS DECREASED SENSATION OF LEFT LEG, NO DRIFT NOTED, REPORTS NUMBNESS OF LIPS/CHEEKS IS LESS NOW. NO FACIAL DROOP NOTED, NO SLURRED SPEECH NOTED. VS WNL. SR ON TELEMETRY, HR 80'S. FOLLOWS ALL DIRECTIONS, ANSWERS QUESTIONS APPROPRIATELY. ON RA, NO SOB NOTED. DENIES PAIN. NURSE ASSESSMENT PERFORMED. LAC IV INTACT, SALINE LOCKED. POC DISCUSSED, PT UNDERSTANDS AND AGREES. TALKS TO HER GRANDAUGHTER ON THE PHONE. REPORTS AFTER HER MRI TESTING TODAY SHE HAS BEEN SLEEPING SINCE SHE RECEIVED MEDICATIONS TO BE ABLE TO TOLERATE TESTS. BEDTIME SNACK PROVIDED. ABLE TO SWALLOW HER BEDTIME MEDICATION. ICE, ICED WATER PROVIDED. CALL LIGHT WITHIN REACH.
--- NOTE | 2020-10-26 23:20 | NUR ---
PATIENT SLEEPS. NO ACUTE DISTRESS SHOWN. CALL LIGHT WITHIN REACH.
[2020-10-27] VITALS: BP 133/57
--- NOTE | 2020-10-27 00:21 | NUR ---
PATIENT AWAKENS WITH PAINFUL STIMULI. IS ABLE TO USE BSC TO VOID. NO ACUTE DISTRESS SHOWN. NOW BACK IN BED. CALL LIGHT WITHIN REACH.
[2020-10-27 02:00] VITALS: BP 116/53
[2020-10-27 04:00] VITALS: BP 90/54
--- NOTE | 2020-10-27 04:20 | NUR ---
PATIENT AWAKENS EASILY WHEN SPOKEN TO. NO ACUTE DISTRESS SHOWN. AFEBRILE. NO NEEDS AT THIS TIME. CALL LIGHT WITHIN REACH.
[2020-10-27 05:23] LABS: INTERNATIONAL NORMALIZED RATIO 1.2 RATIO (0.7-1.3); PROTHROMBIN TIME 12.3 SECONDS (9.0-12.5)
[2020-10-27 06:00] VITALS: BP 114/62
--- NOTE | 2020-10-27 06:15 | NUR ---
PATIENT AWAKENS EASILY HWNE SPOKEN TO. ABLE TO SWALLOW SYNTHROID WITHOUT DIFFICULTY. NO ACUTE DISTRESS SHOWN. CALL LIGHT WITHIN REACH.
[2020-10-27 08:00] VITALS: BP 184/74
--- NOTE | 2020-10-27 08:00 | NUR ---
PATIENT LAYING IN BED AT THIS TIME. PATIENT ALERT AND ORIENTED AT THIS TIME X3. OILSEED MEAT PRESSER DONE SEE INTERVENTIONS. CALL LIGHT AND SIDERAILS UP X 2. MEND EXAM DONE AND SCORED A 1. PATIENT HAS LEFT SIDED SLIGHT WEAKNESS/NO DRIFT NOTED IN ANY EXTEMITY. LUNG SOUNDS ARE CLEAR HEART RATE IS S/R AT 92 BPM. RESPIRATIONS ARE EASY AND UNLABORED. DR. HINES IN TO SEE PATIENT AT THIS TIME.
--- NOTE | 2020-10-27 10:18 | NUR ---
PATIENT RESTING IN BED AT THIS TIME. SIDERAILS ARE UP CALL LIGHT IS WITHIN REACH. PATIENT DENIES ANY NEEDS OR PAIN AT THIS TIME.
[2020-10-27] MEDS ORDERED: WARFARIN SODIUM5 MG PO (10:43)
[2020-10-27] MEDS ORDERED: ENOXAPARIN100 MG/ML SC (10:45)
--- NOTE | 2020-10-27 10:59 | NUR ---
Physical Therapy Note: Patient was seen and treated today. Patient identified by full name and date of . Physical Therapy Management: 1. Straight leg raise x 10 repetitions. 2. Quad-setting x 10 repetitions. 3. AROME of the head and neck x 10 repetitions 4. Rounding of the shoulders x 10 repetitions 5. Supine to sit x 2 repetitions 6. Sit to stand x 2 repetitions 7. Standing tolerance x 3-5 minutes. Patient was able to perform all exercises with minimal fatigue. Patient compliant with all exercises. Call button within reach.
[2020-10-27 12:00] VITALS: BP 150/56
--- NOTE | 2020-10-27 12:00 | NUR ---
PATIENT LAYING IN BED AT THIS TIME. PATIENT NEURO AND MEND CHECK REMAIN UNCHAGED AT THIS TIME. MACHINE PLATE STACKER IN TO SEE PATIENT TO COMPLETE ECHO PRIOR TO DISCHARGE. PATIENT HAS BEEN D/C AT THIS TIME TIME AND VERBALIZES UNDERSTANDING OF D/C INSTRUCTIONS AT THIS TIME. SIDERAILS ARE UP CALL LIGHT IS WITHIN REACH.
--- NOTE | 2020-10-27 12:49 | NUR ---
MAIL CLERKS SUPERVISOR DONE AT THIS TIME PATIENT EATHING LUNCH. PATIENT DENEIS ANY NEEDS AT THIS TIME. SIDERAILS ARE UP CALL LIGHT IS WITHIN REACH.
--- NOTE | 2020-10-27 12:59 | NUR ---
PATIENT D/C AT THIS TIME PATIENT VERBALIZES UNDERSTANDING THAT SHE NEEDS TO COME BACK TO [facility] AT 9PM FOR OUTPAITENT IV THERAPY TO GET HER LOVENOX INJECTION AND THEN STARTING TOMORROW TO COME 9AM AND THEN 9PM X SIX DAYS. IV REMOVED AT THIS TIME AND IV SITE SHOWS NO SIGNS OF IV SITE INFECTIONS.
--- NOTE | 2020-10-27 13:43 | NUR ---
Discharge instructions given. Patient verbalizes understanding of same. Discharged in stable condition via Wheelchair to Home with family. All belongings sent with pt. PATIENT D/C WITH HOME CARE FOR PT BUT REFUSES. PATIENT WILL BE COMING IN FOR BID LOVENOX SHOTS STARTING TONIGHT AT 9PM.
== END 2020-10-27 13:44 | disposition home or self-care (01) ==
LOC: ED 13:12 → ED-I 15:43 → ED 16:02 → ICU 16:03
PROVIDERS: Family Medicine; Nurse Practitioner; ADMIT Internal Medicine; ATTEND Internal Medicine
DX: G45.9 Transient cerebral ischemic attack, unspecified (principal); R53.1 Weakness; R20.0 Anesthesia of skin; I10 Essential (primary) hypertension; E11.9 Type 2 diabetes mellitus without complications; J44.9 Chronic obstructive pulmonary disease, unspecified; E78.5 Hyperlipidemia, unspecified; I25.10 Atherosclerotic heart disease of native coronary artery without angina pectoris; E03.9 Hypothyroidism, unspecified; K21.9 Gastro-esophageal reflux disease without esophagitis; R79.1 Abnormal coagulation profile; Z79.84 Long term (current) use of oral hypoglycemic drugs; Z95.2 Presence of prosthetic heart valve; Z79.01 Long term (current) use of anticoagulants; Z20.822 Contact with and (suspected) exposure to COVID-19
CPT/HCPCS: J1650; J2060; Q9967

== ENCOUNTER 2020-11-11 03:26 | Emergency (ER) | payer MEDICARE ==
[~2020-11-11] VITALS: Ht 170.2 cm; Wt 93.1 kg
[~2020-11-11 03:26] MED LIST changes: +ENOXAPARIN100 MG/ML SC; +WARFARIN SODIUM5 MG PO
[2020-11-11] MEDS ORDERED: WARFARIN7.5 MG PO (04:03)
[2020-11-11 04:18] LABS: HEMATOCRIT 36.3 % (37.0-47.0); HEMOGLOBIN 11.1 g/dl (12.0-16.0); IMMATURE GRANULOCYTES 0.8 % (0.0-5.0); MEAN CELL VOLUME 90.8 fL CALC (80.0-100.0); MEAN CORPUSCULAR HGB 27.8 pG CALC (26.0-32.0); MEAN CORPUSCULAR HGB CONC 30.6 g/dL CAL (32.0-36.0); NEUT# 5.81 thou/uL (2.00-7.15); RED CELL DISTRI WIDTH 13.5 % (11.5-15.5)
[2020-11-11 04:27] LABS: ALBUMIN 3.7 g/dL (3.2-5.0); BILIRUBIN, TOTAL 0.2 mg/dL (0.0-1.4); CREATININE 1.2 mg/dL (0.5-1.0); POTASSIUM 3.9 mmol/l (3.5-5.1); TOTAL PROTEIN 6.4 g/dL (6.3-8.2)
[2020-11-11 04:28] LABS: INTERNATIONAL NORMALIZED RATIO 1.9 RATIO (0.7-1.3)
[2020-11-11 04:37] LABS: URINE BILIRUBIN - DIPSTICK NEGATIVE (NEGATIVE); URINE BLOOD DIPSTICK NEGATIVE (NEGATIVE); URINE COLOR YELLOW; URINE GLUCOSE - DIPSTICK NEGATIVE (NEGATIVE); URINE KETONE NEGATIVE (NEGATIVE); URINE LEUK ESTERASE TRACE (NEGATIVE); URINE NITRITE - DIPSTICK NEGATIVE (Negative); URINE PROTEIN - DIPSTICK NEGATIVE (NEG-TRACE); URINE UROBILINOGEN - DIPSTICK 0.2 E.U./dL (0.2)
[2020-11-11] MEDS ORDERED: LORTAB5 PO (06:43)
[2020-11-11 06:47] VITALS: BP 148/68
== END 2020-11-11 07:03 | disposition home or self-care (01) ==
LOC: ED 03:26
PROVIDERS: Family Medicine
DX: S72.112A Displaced fracture of greater trochanter of left femur, initial encounter for closed fracture (principal); E11.9 Type 2 diabetes mellitus without complications; I10 Essential (primary) hypertension; J44.9 Chronic obstructive pulmonary disease, unspecified; W06.XXXA Fall from bed, initial encounter; Y92.003 Bedroom of unspecified non-institutional (private) residence as the place of occurrence of the external cause; Z95.2 Presence of prosthetic heart valve; Z96.82 Presence of neurostimulator; Z79.84 Long term (current) use of oral hypoglycemic drugs; Z20.822 Contact with and (suspected) exposure to COVID-19

== ENCOUNTER 2021-08-09 09:12 | Day surgery (SDC) | payer MEDICARE ==
[~2021-08-09] VITALS: Ht 167.6 cm; Wt 88.0 kg
[~2021-08-09 09:12] MED LIST changes: +LORTAB5 PO; +LOVENOX80 MG/0.8 SC; +METFORMIN HCL1000 MG PO; +MONTELUKAST SOD10 MG PO; +OXYCOD-APAP1 TA1 PO; +WARFARIN7.5 MG PO
[2021-08-09] MEDS ORDERED: OMEPRAZOLE20 MG PO (09:59)
[2021-08-09 11:23] VITALS: BP 127/50
== END 2021-08-09 10:45 | disposition home or self-care (01) ==
LOC: ORM 09:12
PROVIDERS: ATTEND Surgery
PROC: 0DJ08ZZ Inspection of Upper Intestinal Tract, Via Natural or Artificial Opening Endoscopic (ICD-10-PCS; principal; 2021-08-09)
DX: K29.70 Gastritis, unspecified, without bleeding (principal); I10 Essential (primary) hypertension; E11.9 Type 2 diabetes mellitus without complications; Z79.84 Long term (current) use of oral hypoglycemic drugs; Z79.01 Long term (current) use of anticoagulants; Z95.2 Presence of prosthetic heart valve

== ENCOUNTER 2022-11-01 18:16 | Emergency (ER) | payer MEDICARE ==
[~2022-11-01] VITALS: Ht 167.6 cm; Wt 91.0 kg
[~2022-11-01 18:16] MED LIST changes: +OMEPRAZOLE20 MG PO
[2022-11-01] MEDS ORDERED: LORTAB 1010 MG PO ×2 (19:14→19:26)
[2022-11-01 19:49] VITALS: BP 154/68
== END 2022-11-01 19:49 | disposition home or self-care (01) ==
LOC: ED 18:16
DX: S83.92XA Sprain of unspecified site of left knee, initial encounter (principal); S83.91XA Sprain of unspecified site of right knee, initial encounter; S81.011A Laceration without foreign body, right knee, initial encounter; I10 Essential (primary) hypertension; E11.9 Type 2 diabetes mellitus without complications; J44.9 Chronic obstructive pulmonary disease, unspecified; W01.0XXA Fall on same level from slipping, tripping and stumbling without subsequent striking against object, initial encounter; Y92.230 Patient room in hospital as the place of occurrence of the external cause; Z95.2 Presence of prosthetic heart valve; Z96.82 Presence of neurostimulator

== ENCOUNTER 2023-10-23 09:17 | Day surgery (SDC) | payer MEDICARE ==
[~2023-10-23] VITALS: Ht 167.6 cm; Wt 90.3 kg
[~2023-10-23 09:17] MED LIST changes: +BREZTRI AEROSPH1 AER IN; +CVS OMEPRAZOLE20 M1 PO; +FENOFIBRATE160 MG PO; +GLYCOPYRROLATE 0.2 MG/ML IV ONE; +JANTOVEN5 MG PO; +LEVOTHYROXIN112 MC1 PO; +LEVOTHYROXINE; +LIDOCAINE HCL 2% 2ML SDV IV ONE; +LORTAB 1010 MG PO; +OZEMPIC; +PAROXETINE PO; +PERCOCET 10/31 COMBO PO; +PROPOFOL 200 MG/20 ML VIAL IV ONE; +VENTOLIN HFA108 MCG IN
[2023-10-23] MEDS ORDERED: SODIUM CHLORIDE 0.9% 1,000 ML IV ONE (09:21)
[2023-10-23] MEDS ORDERED: FAMOTIDINE 10MG/ML 2ML SDV IV ONE (09:21)
[2023-10-23] MEDS ORDERED: ONDANSETRON HCl 4 MG/2 ML SDV ONE (09:46)
[2023-10-23 12:25] VITALS: BP 145/62
== END 2023-10-23 13:37 | disposition home or self-care (01) ==
LOC: ENDO 09:17 → ORM 09:20 → ENDO 09:20
PROVIDERS: ATTEND Surgery
PROC: 0DBK8ZX Excision of Ascending Colon, Via Natural or Artificial Opening Endoscopic, Diagnostic (ICD-10-PCS; principal; 2023-10-23)
PROC: 0DBL8ZX Excision of Transverse Colon, Via Natural or Artificial Opening Endoscopic, Diagnostic (ICD-10-PCS; 2023-10-23)
PROC: 0DBN8ZX Excision of Sigmoid Colon, Via Natural or Artificial Opening Endoscopic, Diagnostic (ICD-10-PCS; 2023-10-23)
PROC: 0DBH8ZX Excision of Cecum, Via Natural or Artificial Opening Endoscopic, Diagnostic (ICD-10-PCS; 2023-10-23)
DX: Z12.11 Encounter for screening for malignant neoplasm of colon (principal); D12.2 Benign neoplasm of ascending colon; D12.0 Benign neoplasm of cecum; D12.5 Benign neoplasm of sigmoid colon; K63.5 Polyp of colon; K57.30 Diverticulosis of large intestine without perforation or abscess without bleeding; K64.8 Other hemorrhoids; I10 Essential (primary) hypertension; E11.9 Type 2 diabetes mellitus without complications; E78.00 Pure hypercholesterolemia, unspecified; Z79.85 Long-term (current) use of injectable non-insulin antidiabetic drugs; Z86.010 Personal history of colon polyps

== ENCOUNTER 2024-04-27 09:52 | Emergency (ER) | payer MEDICARE ==
[~2024-04-27] VITALS: Ht 167.6 cm; Wt 89.3 kg
[2024-04-27] VITALS (9 sets, daily range): BP systolic 137–180; BP diastolic 51–113
[~2024-04-27 09:52] MED LIST changes: -GLYCOPYRROLATE 0.2 MG/ML IV ONE; -LIDOCAINE HCL 2% 2ML SDV IV ONE; -PROPOFOL 200 MG/20 ML VIAL IV ONE
[2024-04-27] MEDS ORDERED: methylPREDNISolone SODIUM SUCC 125 MG/2 ML SDV IV ONE (10:05)
[2024-04-27] MEDS ORDERED: IPRATROPIUM-Albuterol 0.5MG-2.5MG/3 ML NEB ONE ×2 (10:05)
[2024-04-27 10:49] LABS: CREATININE 1.2 mg/dL (0.5-1.0); POTASSIUM 4.3 mmol/l (3.5-5.1); TOTAL PROTEIN 6.6 g/dL (6.3-8.2)
[2024-04-27 11:04] LABS: BILIRUBIN, TOTAL 0.6 mg/dL (0.02-1.3)
[2024-04-27 11:11] LABS: BASO% 0.3 % (0-3); HEMOGLOBIN 12.1 g/dl (12.0-16.0); IMMATURE GRANULOCYTES 0.1 % (0.0-5.0); MEAN CELL VOLUME 90.3 fL CALC (80.0-100.0); MEAN CORPUSCULAR HGB 28.7 pG CALC (26.0-32.0); MEAN CORPUSCULAR HGB CONC 31.8 g/dL CAL (32.0-36.0); MONO% 7.1 % (2-13); NEUT# 5.21 thou/uL (2.00-7.15); NEUT% 69.5 % (42-76); RED BLOOD COUNT 4.21 mill/uL (4.20-5.60); RED CELL DISTRI WIDTH 13.6 % (11.5-15.5)
[2024-04-27] MEDS ORDERED: TAM75CAP PO (13:23)
== END 2024-04-27 12:07 | disposition home or self-care (01) ==
LOC: ED 09:52
PROVIDERS: Family Medicine
DX: J11.1 Influenza due to unidentified influenza virus with other respiratory manifestations (principal); I10 Essential (primary) hypertension; E11.9 Type 2 diabetes mellitus without complications; J44.9 Chronic obstructive pulmonary disease, unspecified; E66.9 Obesity, unspecified; Z79.85 Long-term (current) use of injectable non-insulin antidiabetic drugs; Z96.82 Presence of neurostimulator; Z95.2 Presence of prosthetic heart valve; Z20.822 Contact with and (suspected) exposure to COVID-19